=== PATIENT | female | born 1955 | race Caucasian/White ===

== ENCOUNTER 2016-12-10 19:24 | Emergency (ER) | payer OTHER ==
--- NOTE | 2016-12-10 19:48 | ED CARDIAC/CP/PALPITATIONS ---
History of Present Illness General Chief Complaint: General Adult Stated Complaint: SIB WALKIN, LOW O2 SAT, PNA Source: patient, family Exam Limitations: language barrier Vital Signs & Intake/Output Vital Signs & Intake/Output Vital Signs Date Time Temp Pulse Resp B/P Pulse O2 O2 Flow FiO2 Ox Delivery Rate 12/10 2107 92 18 142/90 95 Room Air 12/10 2028 94 12/10 2022 96 Room Air 12/10 1936 98.0 87 22 146/90 94 Room Air Allergies Coded Allergies: No Known Allergies (12/10/16) Reconcile Medications Albuterol Sulfate (Ventolin Hfa) 90 MCG HFA.AER.AD 2 PUF INH Q4-6 PRN PRN SHORTNESS OF BREATH Atenolol 50 MG TABLET 1 TAB PO DAILY BP (Reported) Azithromycin (Zithromax) 500 MG TABLET 1 TAB PO DAILY PNEUMONIA Benzonatate (Tessalon Perle) 100 MG CAPSULE 1 CAP PO TID PRN COUGH Calcium Carbonate/Vitamin D3 (Calcium 500 + D Tablet) (Unknown Strength) TABLET (Unknown Dose) PO DAILY SUPPLEMENT (Reported) Escitalopram Oxalate 10 MG TABLET 1 TAB PO DAILY ANXIETY (Reported) Magnesium Oxide (Magnesium) (Unknown Strength) CAPSULE (Unknown Dose) PO DAILY SUPPLEMENT (Reported) Methylprednisolone. (Medrol) 4 MG TAB.DS.PK 1 DP PO AD INFLAMMATION 6 on day 1 then reduce by one tablet daily until gone Rabeprazole Sodium 20 MG TABLET.DR 1 TAB PO DAILY GI (Reported) Risedronate Sodium (Actonel) 35 MG TABLET 1 TAB PO QSUN BONES (Reported) Robitussin AC (Guaifenesin-Codeine Syrup) 200 MG-20 MG/10 ML LIQUID 10 ML PO QPM PRN COUGH TAKE FOR COUGH AT NIGHT DO NOT OPERATE MOTOR VEHICLES WITH MEDICATION Vitamin B Complex 1 EACH CAPSULE 1 CAP PO DAILY SUPPLEMENT (Reported) Triage Note: PER DAUGHTER SENT TO ED BY DR. VALVERDE FOR PNEUMONIA. DENIES FEVER , NOT FEELING WELL X 1 WEEK, COUGH BUT NONPRODUCTIVE. Triage Nurses Notes Reviewed? yes Onset: Gradual Duration: constant Timing: recent history Radiation: no radiation HPI: Patient is a 61-year-old female with a past medical history of hypertension who presents to emergency room with a one-week history of persistent nonproductive dry hacking cough with head congestion, nasal congestion and dyspnea on exertion. Patient is an every day smoker Positive sick contacts at home. Patient was seen and evaluated at [facility] urgent care facility obtain chest x-ray showing right subtle basilar atelectasis and/or infiltrates. Patient receives site Medrol 125 mg and nebulizer treatment with no improvement of symptoms oxygen saturation was 90-93% room air. Patient was advised to present to emergency room for unimproved symptoms. Patient denies any fevers, chest pain arm pain jaw pain nausea vomiting leg swelling hemoptysis recent travel recent surgery history of PE or DVT. (BROOK ROJAS) Past History Travel History Traveled to [facility] past 21 day No Medical History Any Pertinent Medical History? see below for history Neurological: NONE EENT: NONE Cardiovascular: hypertension Respiratory: NONE Gastrointestinal: GERD Hepatic: NONE Renal: NONE Musculoskeletal: OSTEOPOROSIS Psychiatric: NONE Endocrine: NONE Surgical History Surgical History: non-contributory Psychosocial History What is your primary language Kinyarwanda Tobacco Use: Current Daily Use Daily Tobacco Use Amount/Type: => 5 Cigarettes daily Family History Hx Contributory? No (BROOK ROJAS) Review of Systems Review of Systems Constitutional: Reports: see HPI. EENTM: Reports: see HPI, nasal congestion. Respiratory: Reports: see HPI, cough. Cardiovascular: Reports: no symptoms. GI: Reports: no symptoms. Genitourinary: Reports: no symptoms. Musculoskeletal: Reports: no symptoms. Skin: Reports: no symptoms. Neurological/Psychological: Reports: no symptoms. Hematologic/Endocrine: Reports: no symptoms. Immunologic/Allergic: Reports: no symptoms. All Other Systems: Reviewed and Negative (BROOK ROJAS) Physical Exam Physical Exam General Appearance: no apparent distress, alert, comfortable Respiratory: chest non-tender, no respiratory distress, rhonchi Cardiovascular: regular rate/rhythm Comments: Well-developed well-nourished person in no acute distress HEENT: Normal EENT exam, extraocular motion intact, no nystagmus. Pupils equally round and reactive to light and accommodation. Nose is atraumatic. External auditory canal and Tympanic membranes clear. Pharynx normal. No swelling or edema. Neck: Supple, no lymphadenopathy, normal range of motion without pain or tenderness Back: Nontender, no CVA tenderness. Cardiovascular: Regular rate and rhythms no murmurs rubs or gallops, normal JVP Abdomen: Soft, nontender nondistended, no appreciable organomegaly. Normal bowel sounds. No ascites Extremity: No edema, no calf tenderness to palpation, normal and equal pulses. Neuro: Alert oriented x3, motor sensory normal, Skin: No appreciable rash on exposed skin, skin is warm and dry. Psych: Mood and affect is normal, memory and judgment is normal. Core Measures ACS in differential dx? No Severe Sepsis Present: No Septic Shock Present: No (OLAMIDE LOGAN,BROOK) Progress Differential Diagnosis: AMI, aortic dissection, atrial fibrillation, cholecystitis, CHF/pulm edema, costochondritis, hyperkalemia, hypovolemia, hyperthyroid, hyperventilation, intracranial hemorrhage, musculoskeletal pain, myocarditis, pancreatitis, pericarditis, pneumonia, pneumothorax, PSVT, pulmonary embolism, PUD/GERD, PVCs/PACs, respiratory failure, rib fracture, sepsis, unstable angina, V-fib/V-Tach, WPW syndrome, PNEUMONIA, BRONCHITIS, UPPER RESPIRATORY INFECTION, VIRAL SYNDROME, chf, copd Plan of Care: Orders Procedure Date/time Status BLOOD CULTURE 12/10 1940 Active TROPONIN LEVEL 12/10 1940 Complete COMPREHENSIVE METABOLIC PANEL 12/10 1940 Complete CBC WITHOUT DIFFERENTIAL 12/10 1940 Complete EKG 12/10 1940 Active Laboratory Tests 12/10/162001: Anion Gap 14, Estimated GFR > 60, BUN/Creatinine Ratio 26.3 H, Glucose 109 H, Calcium 9.8, Total Bilirubin 0.4, AST 27, ALT 27, Alkaline Phosphatase 107, Troponin I < 0.01, Total Protein 7.7, Albumin 4.5, Globulin 3.2, Albumin/ Globulin Ratio 1.4, CBC w Diff NO MAN DIFF REQ, RBC 5.03, MCV 89.9, MCH 30.2, RDW 13.0, MPV 7.4, Gran % 50.8, Lymphocytes % 33.7, Monocytes % 10.0 H, Eosinophils % 5.0, Basophils % 0.5, Absolute Granulocytes 2.9, Absolute Lymphocytes 1.9, Absolute Monocytes 0.6, Absolute Eosinophils 0.3, Absolute Basophils 0, PUBS MCHC 33.5 Microbiology 12/10 2015 BLOOD: Blood Culture - RECD 12/10 2001 BLOOD: Blood Culture - RECD Patient on initial examination looks well no apparent distress no respiratory distress rhonchi noted in bilateral lung hammer Oxygen saturation 94% room air Patient will be given nebulizer treatment Steroids have been administered prior to arrival On initial blood work was unremarkable. I do not suspect patient have a pulmonary embolism. Patient has concerns of pneumonia per history and exam Patient after nebulizer treatment and had improvement of aeration. Patient walks down the hallway with me noted to be 94% room air no respiratory distress. Patient was strongly advised to discontinue smoking. Begin medications for pneumonia. (BROOK ROJAS) Initial ED EKG: SINUS RHYTHM 78 BPM (BROOK ROJAS) Departure Departure Disposition: HOME OR SELF CARE Condition: Stable Clinical Impression Primary Impression: Pneumonia Referrals: JUANITO CARNES,VANE Cerrato (PCP/Family) Additional Instructions: As discussed please discontinue smoking. Begin the prescription of Tessalon Perles and Robitussin with codeine for cough. Begin the prescription of Ventolin inhaler for shortness of breath and begin using the inhaler prescription with this medication. Begin the prescription of azithromycin for the full course. If no improvement in 2-3 days follow-up with your primary care doctor. Prescriptions are waiting at the [facility] pharmacy. If symptoms worsen or she develop a new concerning symptom return to emergency room immediately Begin the prescription of Medrol Dosepak tomorrow as you've had received steroids today Departure Forms: Customer Survey General Discharge Information Prescriptions: Current Visit Scripts Azithromycin (Zithromax) 1 TAB PO DAILY #5 TAB Methylprednisolone. (Medrol) 1 DP PO AD #1 DP 6 on day 1 then reduce by one tablet daily until gone Albuterol Sulfate (Ventolin Hfa) 2 PUF INH Q4-6 PRN PRN SHORTNESS OF BREATH #1 INHAL Benzonatate (Tessalon Perle) 1 CAP PO TID PRN COUGH #21 CAP Robitussin AC (Guaifenesin-Codeine Syrup) 10 ML PO QPM PRN COUGH #100 ML TAKE FOR COUGH AT NIGHT DO NOT OPERATE MOTOR VEHICLES WITH MEDICATION (BROOK ROJAS) PA/LAUNDRY OR DRY CLEANERS COUNTER CLERK Co-Sign Statement Statement: ED Attending supervision documentation- [] I saw and evaluated the patient. I have also reviewed all the pertinent lab results and diagnostic results. I agree with the findings and the plan of care as documented in the PA's/LAUNDRY OR DRY CLEANERS COUNTER CLERK's documentation. [X] I have reviewed the ED Record and agree with the PA's/LAUNDRY OR DRY CLEANERS COUNTER CLERK's documentation. [] Additions or exceptions (if any) to the PAs/LAUNDRY OR DRY CLEANERS COUNTER CLERK's note and plan are summarized below: [] (MAYCOL CARNES,CIARA Pack) Critical Care Note Critical Care Note Critical Care Time: non-applicable (BROOK ROJAS)
[2016-12-10 20:27] LABS: ABSOLUTE BASOPHIL COUNT 0 /CUMM (0.0-0.2); ABSOLUTE EOSINOPHIL COUNT 0.3 /CUMM (0.0-0.7); ABSOLUTE GRANULOCYTE CT 2.9 /CUMM (1.4-6.5); ABSOLUTE LYMPH COUNT 1.9 /CUMM (1.2-3.4); ABSOLUTE MONOCYTE COUNT 0.6 /CUMM (0.10-0.60); BASOPHIL % 0.5 % (0.0-2.0); GRANULOCYTE % 50.8 % (42.2-75.2); HEMATOCRIT 45.2 % (37-47); MEAN CORPUSCULAR HGB 30.2 PG (27.0-31.0); MEAN CORPUSCULAR HGB CONC 33.5 G/DL (33.0-37.0); MEAN CORPUSCULAR VOLUME 89.9 FL (81.0-99.0); MEAN PLATELET VOLUME 7.4 FL (7.4-10.4); PLATELET COUNT 211 /CUMM (130-400); RED BLOOD CELL CT 5.03 /CUMM (4.20-5.40); WHITE BLOOD CELL COUNT 5.6 /CUMM (4.8-10.8)
[2016-12-10] MEDS ORDERED: TESSALON PERLE100 M1 PO (20:42)
[2016-12-10] MEDS ORDERED: ZITHROMAX500 M2 PO (20:42)
[2016-12-10] MEDS ORDERED: VENTOLIN HFA18 GM INH (20:42)
[2016-12-10] MEDS ORDERED: MEDROL4 M2 PO (20:42)
[2016-12-10] MEDS ORDERED: GUAIFENESIN-COD10 ML PO (20:42)
[2016-12-10] MEDS ORDERED: ACTONEL35 M1 PO (20:44)
[2016-12-10] MEDS ORDERED: ATENOLOL50 M1 PO (20:44)
[2016-12-10] MEDS ORDERED: RABEPRAZOLE SOD20 M1 PO (20:44)
[2016-12-10] MEDS ORDERED: ESCITALOPRAM OX10 MG PO (20:45)
[2016-12-10] MEDS ORDERED: VITAMIN B COMP1 EACH PO (20:45)
[2016-12-10] MEDS ORDERED: CALCIUM 500 +1 EAC5 PO (20:46)
[2016-12-10] MEDS ORDERED: MAGNESIUM400 M1 PO (20:46)
[2016-12-10 21:08] VITALS: BP 142/90
== END 2016-12-10 21:08 ==
LOC: ERH 19:24
PROVIDERS: Emergency Medicine
DX: J18.9 Pneumonia, unspecified organism (principal); F17.210 Nicotine dependence, cigarettes, uncomplicated
CPT/HCPCS: 1263; 87040; 93005; 93010